=== PATIENT | female | born 1965 | race Caucasian/White ===

== ENCOUNTER 2022-01-09 18:54 | Emergency (ER) | payer OTHER ==
[2022-01-09 18:59] VITALS: TEMP 99; BMI 25.0
[2022-01-09 20:02] LABS: HEMOGLOBIN 12.1 G/dL (10.7-15.3); MCH 28.9 pg (25.7-33.7); MCHC 34.5 g/dl (32.0-36.0); MEAN CELL VOLUME 83.7 fl (80-96); MEAN PLT VOLUME 8.7 fl (7.5-11.1); PLATELET COUNT 169.6 10^3/uL (134-434); RBC 4.18 10^6/uL (3.60-5.2); WHITE BLOOD COUNT 5.1 10^3/uL (4.0-10.8)
[2022-01-09 20:07] LABS: ALBUMIN 4.4 g/dl (3.4-5.0); BILIRUBIN,TOTAL 0.5 mg/dl (0.2-1); CALCIUM 9.9 mg/dl (8.5-10); CREATININE 0.8 mg/dl (0.55-1.3); TOT PROT 7.2 g/dl (6.4-8.2)
[2022-01-09 21:08] VITALS: BP 115/80; PULSE 70; RESP 16
== END 2022-01-09 21:17 | disposition home or self-care (01) ==
LOC: FER 18:54
DX: R07.89 Other chest pain (principal)
CPT/HCPCS: 36415; 71046-TC-FY; 80053; 82550; 84484; 85025; 85379; 93005; 99284-25

== ENCOUNTER 2024-08-29 22:38 | Inpatient (IN) | payer OTHER ==
[2024-08-29] MEDS ORDERED: ASPIRIN 81 MG CHEWABLE TABLETS ONE (23:02)
[2024-08-29] MEDS ORDERED: dilTIAZem HCL 50 MG/10 ML - 10 ML VIAL ONE (23:03)
[2024-08-29] MEDS: ASPIRIN 81 MG CHEWABLE TABLETS PO ONE (23:19)
[2024-08-29] MEDS: dilTIAZem HCL 50 MG/10 ML - 10 ML VIAL IVPUSH ONE ×2 (23:19→23:42)
[2024-08-29 23:56] LABS: HEMATOCRIT 38.7 % (32.4-45.2); HEMOGLOBIN 12.8 GM/dL (10.7-15.3); MCH 27.8 pg (25.7-33.7); MCHC 33.2 g/dl (32.0-36.0); MEAN CELL VOLUME 83.7 fl (80-96); MEAN PLT VOLUME 8.8 fl (7.5-11.1); PLATELET COUNT 205 10^3/uL (134-434); RBC 4.62 M/mm3 (3.60-5.2); WHITE BLOOD COUNT 5.8 K/mm3 (4.0-10.0)
[2024-08-30] MEDS ORDERED: METOPROLOL TARTRATE 5 MG/5 ML VIAL ONE (00:14)
[2024-08-30] MEDS: METOPROLOL TARTRATE 5 MG/5 ML VIAL IVPUSH ONE ×2 (00:21→08:11)
[2024-08-30 00:51] LABS: ANISOCYTOSIS 0; MACROCYTOSIS 0
[2024-08-30 01:10] LABS: HIV INTERPRETATION NEGATIVE (NEGATIVE)
[2024-08-30 01:24] LABS: ALBUMIN 3.9 g/dl (3.4-5.0); BILIRUBIN,TOTAL 0.3 mg/dL (0.2-1); BLOOD UREA NITROGEN 19.5 mg/dL (7-18); CALCIUM 10.1 mg/dL (8.5-10.1); CREATININE 0.8 mg/dL (0.55-1.3)
[2024-08-30] MEDS: SODIUM CHLORIDE 500 ML IV STA (01:41)
[2024-08-30] MEDS ORDERED: DIGOXIN 0.5 MG/2 ML AMPUL ONE (01:51)
[2024-08-30 01:52] LABS: INR 1.04 (0.83-1.09); PROTHROMBIN TIME (PATIENT) 11.4 SEC (9.7-13.0)
[2024-08-30] MEDS: DIGOXIN 0.5 MG/2 ML AMPUL IVPUSH ONE (02:05)
[2024-08-30] MEDS ORDERED: HEPARIN NA (PORCINE) 5,000 UNITS/ML 1ML VIAL IVPUSH PRN ×2 (02:18)
[2024-08-30] MEDS: HEPARIN INFUSION - 25,000 UNITS/500 ML INFUS.BAG IVPB SCH (02:36)
[2024-08-30 04:26] LABS: URINE APPEARANCE CLEAR; URINE BILIRUBIN NEGATIVE (NEGATIVE); URINE COLOR YELLOW; URINE GLUCOSE (UA) NEGATIVE (NEGATIVE); URINE KETONE NEGATIVE (NEGATIVE); URINE LEUK ESTERASE NEGATIVE (NEGATIVE); URINE NITRITE NEGATIVE (NEGATIVE); URINE PROTEIN NEGATIVE (NEGATIVE); URINE UROBILINOGEN 0.2 mg/dL (0.2-1.0)
[2024-08-30] MEDS ORDERED: DIGOXIN 0.5 MG/2 ML AMPUL IVPUSH PRN (08:00)
[2024-08-30] MEDS ORDERED: APIXABAN 5 MG TABLET PO SCH (10:00)
[2024-08-30] MEDS: METOPROLOL TARTRATE 50 MG TABLET (FP) PO ONE (12:50)
[2024-08-30 19:51] VITALS: BMI 14.4
[2024-08-30] MEDS: METOPROLOL TARTRATE 50 MG TABLET (FP) PO SCH (22:03)
[2024-08-31] MEDS: SODIUM CHLORIDE 0.45% 1,000 ML IV SCH (06:25)
[2024-08-31 07:43] LABS: POTASSIUM 3.9 mmol/L (3.5-5.1)
[2024-08-31 07:55] LABS: BASO % 0.4 % (0-2.0); CALCIUM 9.4 mg/dL (8.5-10.1); HEMATOCRIT 35.4 % (32.4-45.2); HEMOGLOBIN 11.6 GM/dL (10.7-15.3); LYMPH % 41.4 % (8-40); MCH 27.5 pg (25.7-33.7); MCHC 32.8 g/dl (32.0-36.0); MEAN CELL VOLUME 83.8 fl (80-96); MEAN PLT VOLUME 8.3 fl (7.5-11.1); MONO % 10.5 % (3.8-10.2); NEUT % 43.7 % (42.8-82.8); PLATELET COUNT 177 10^3/uL (134-434); RBC 4.22 M/mm3 (3.60-5.2); RDW 13.6 % (11.6-15.6); WHITE BLOOD COUNT 3.1 K/mm3 (4.0-10.0)
[2024-08-31 07:56] LABS: ALBUMIN 3.4 g/dl (3.4-5.0); BLOOD UREA NITROGEN 12.4 mg/dL (7-18)
[2024-08-31 08:00] LABS: BILIRUBIN,TOTAL 0.6 mg/dL (0.2-1); CREATININE 0.6 mg/dL (0.55-1.3); PHOSPHOROUS 3.6 mg/dL (2.5-4.9)
[2024-08-31] MEDS ORDERED: ACETAMINOPHEN 325 MG TABLET (FP) PO PRN (08:33)
[2024-08-31] MEDS: ENOXAPARIN NA (PORCINE) 40 MG/0.4 ML DISP.SYRIN SQ SCH (09:20)
[2024-08-31 19:45] VITALS: RESP 18
[2024-09-01 06:05] VITALS: BP 90/62; PULSE 62; TEMP 98.2
[2024-09-01 07:31] LABS: BASO % 0.5 % (0-2.0); EOS % 3.3 % (0-4.5); HEMATOCRIT 33.7 % (32.4-45.2); HEMOGLOBIN 11.1 GM/dL (10.7-15.3); LYMPH % 41.8 % (8-40); MCH 27.9 pg (25.7-33.7); MCHC 32.9 g/dl (32.0-36.0); MEAN CELL VOLUME 84.8 fl (80-96); MEAN PLT VOLUME 8.4 fl (7.5-11.1); MONO % 9.7 % (3.8-10.2); NEUT % 44.7 % (42.8-82.8); PLATELET COUNT 175 10^3/uL (134-434); RBC 3.98 M/mm3 (3.60-5.2); RDW 12.9 % (11.6-15.6); WHITE BLOOD COUNT 3.1 K/mm3 (4.0-10.0)
[2024-09-01 07:56] LABS: POTASSIUM 3.9 mmol/L (3.5-5.1)
[2024-09-01 08:04] LABS: CALCIUM 9.2 mg/dL (8.5-10.1)
[2024-09-01 08:05] LABS: ALBUMIN 3.2 g/dl (3.4-5.0)
[2024-09-01 08:06] LABS: TOT PROT 5.8 g/dl (6.4-8.2)
[2024-09-01 08:07] LABS: CREATININE 0.6 mg/dL (0.55-1.3); PHOSPHOROUS 3.7 mg/dL (2.5-4.9)
[2024-09-01 08:11] LABS: BILIRUBIN,TOTAL 0.4 mg/dL (0.2-1)
== END 2024-09-01 10:13 | disposition home or self-care (01) | DRG 201 ==
LOC: FER 22:38 → J4S 08-30 05:45
PROVIDERS: ADMIT Student in an Organized Health Care Education/Training Program; ATTEND Internal Medicine
DX: I48.92 Unspecified atrial flutter (principal); I48.0 Paroxysmal atrial fibrillation; G47.30 Sleep apnea, unspecified; Z85.3 Personal history of malignant neoplasm of breast
CPT/HCPCS: 36415; 71275-TC; 80053; 80162; 81003; 83735; 84100; 84439; 84443; 84484; 85025; 85027; 85379; 85610; 85730; 86803; 87389; 93005; 93306-TC; 94660; 99285-25; J1644; Q9967